=== PATIENT | female | born 2000 | race Caucasian/White ===

== ENCOUNTER 2019-12-31 15:33 | Emergency (ER) | payer BC, SELFPAY ==
[2019-12-31 15:35] VITALS: BP 130/73; PULSE 112; RESP 18; TEMP 36.9; O2SAT 98
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
[2019-12-31 17:41] VITALS: BP 124/64; PULSE 86; RESP 12; O2SAT 99
== END 2019-12-31 17:42 | disposition home or self-care (01) ==
PROVIDERS: Emergency Provider Emergency Medicine
DX: S29.012A Strain of muscle and tendon of back wall of thorax, initial encounter (principal); V49.40XA Driver injured in collision with unspecified motor vehicles in traffic accident, initial encounter
CPT/HCPCS: 99283